=== PATIENT | female | born 1995 | race Caucasian/White ===

== ENCOUNTER 2017-05-07 02:18 | Emergency (ER) | payer OTHER ==
[2017-05-07] MEDS ORDERED: FAMOTIDINE 20 MG/2 ML SDV IVP ONE (02:23)
[2017-05-07] MEDS ORDERED: methylPREDNISolone SOD SUCC 125 MG/2 ML VIAL IVP ONE (02:23)
[2017-05-07] MEDS ORDERED: NS 1,000 ML IV ONE (02:23)
[2017-05-07 02:25] VITALS: TEMP 97.9
--- NOTE | 2017-05-07 02:25 | EDPHY ---
H & P HPI/ROS: HPI CHIEF COMPLAINT: Allergic reaction HISTORY OF PRESENT ILLNESS: This patient is a 21-year-old female otherwise healthy she presents emergency room with allergic reaction. She states she ate tuna and had a soup with some Peas in it. About an hour later she developed itching on her skin. She noticed a rash. She felt as if her throat was closing and called 911. She arrived from her dorm room to the ER. She was given 50 mg IV Benadryl EN route. She states that did help her itching. She has no trouble breathing. No trouble swallowing. No change in phonation. Denies vomiting. Denies abdominal pain. No history of allergic reactions. She does have seasonal allergies and takes Zyrtec. Past Medical History: Seasonal allergies. Past Surgical History: No recent surgery Social History: Denies daily use of drugs alcohol tobacco products. [facility] Family History: [facility] freshman. Noncontributory. ROS REVIEW OF SYSTEMS: A comprehensive 10 point review of systems is otherwise negative aside from elements mentioned in the history of present illness. Exam Constitutional appears well nontoxic triage nursing summary reviewed, vital signs reviewed, awake/alert. Eyes normal conjunctivae and sclera, EOMI, PERRLA. HENT posterior pharynx normal normal inspection, atraumatic, moist mucus membranes, no epistaxis, neck supple/ no meningismus, no raccoon eyes. Respiratory clear to auscultation bilaterally, normal breath sounds, no respiratory distress, no wheezing. Cardiovascular rate normal, regular rhythm, no murmur, no edema, distal pulses normal. Gastrointestinal soft, non-tender, no rebound, no guarding, normal bowel sounds, no distension, no pulsatile mass. Genitourinary no CVA tenderness. Musculoskeletal no midline vertebral tenderness, full range of motion, no calf swelling, no tenderness of extremities, no meningismus, good pulses, neurovascularly intact. Skin urticaria present diffusely. Neurologic awake, alert and oriented x 3, AAOx3, moves all 4 extremities equally, motor intact, sensory intact, CN II-XII intact, normal cerebellar, normal vision, normal speech. Psychiatric normal mood/affect. Heme/Lymph/Immune no lymphadenopathy. Differential Diagnosis: Includes but is not limited to in a particular order acute large reaction, food allergy, anaphylaxis. Medical Decision Making: Plan for this patient IV establishment with IV fluid bolus, Benadryl IV, Pepcid IV, Solu-Medrol IV. Close monitoring. She does not need epinephrine at this time. No stridor or respiratory symptoms on exam posterior pharynx normal. No trouble swallowing or drooling. Re-evaluation: [id number]: Patient resting comfortably no acute distress. No further signs of progression of allergic reaction. Urticaria has resolved with medication. She has been sleeping resting comfortably. Monitored here for multiple hours and no return of allergic reaction. She understands return emergency room she develops any worsening symptoms includes further signs of allergic reaction, vomiting, trouble breathing or rash. Strict return precautions given. She understands. Benadryl and prednisone for the next 3 days. Source: Patient, EMS Constitutional: Initial Vital Signs Temperature (C) 36.6 C 05/07/17 02:23 Heart Rate 84 05/07/17 02:23 Respiratory Rate 16 05/07/17 02:23 Blood Pressure 110/64 05/07/17 02:23 O2 Sat (%) 96 05/07/17 02:23 O2 Delivery Mode Room Air O2 (L/minute) 36.8 Allergies/Adverse Reactions: No Known Allergies Allergy (Unverified 05/07/17 02:23) Home Medications: Medication Instructions Recorded Concerta 05/07/17 diphenhydrAMINE [Benadryl 25 MG 25 mg PO BID #6 tab 05/07/17 (*)] predniSONE 60 mg PO DAILY #9 tab 05/07/17 Medical Decision Making - Data Points Laboratory Results: Laboratory Results 05/07/17 02:18 05/07/17 02:18 05/07/17 05/07/17 02:18 02:18 WBC 12.79 10^3/uL H 10^3/uL (3.80-9.50) RBC 4.86 10^6/uL 10^6/uL (4.18-5.33) Hgb 13.0 g/dL g/dL (12.6-16.3) Hct 39.2 % % (38.0-47.0) MCV 80.7 fL L fL (81.5-99.8) MCH 26.7 pg L pg (27.9-34.1) MCHC 33.2 g/dL g/dL (32.4-36.7) RDW 14.6 % % (11.5-15.2) Plt Count 226 10^3/uL 10^3/uL (150-400) MPV 10.7 fL fL (8.7-11.7) Neut % (Auto) 81.3 % H % (39.3-74.2) Lymph % (Auto) 11.8 % L % (15.0-45.0) Gosper % (Auto) 5.7 % % (4.5-13.0) Eos % (Auto) 0.2 % L % (0.6-7.6) Baso % (Auto) 0.4 % % (0.3-1.7) Nucleat RBC Rel Count 0.0 % % (0.0-0.2) Absolute Neuts (auto) 10.40 10^3/uL H 10^3/uL (1.70-6.50) Absolute Lymphs (auto) 1.51 10^3/uL 10^3/uL (1.00-3.00) Absolute Monos (auto) 0.73 10^3/uL 10^3/uL (0.30-0.80) Absolute Eos (auto) 0.02 10^3/uL L 10^3/uL (0.03-0.40) Absolute Basos (auto) 0.05 10^3/uL 10^3/uL (0.02-0.10) Absolute Nucleated RBC 0.00 10^3/uL 10^3/uL (0-0.01) Immature Gran % 0.6 % % (0.0-1.1) Immature Gran # 0.08 10^3/uL 10^3/uL (0.00-0.10) Sodium 141 mEq/L mEq/L (134-144) Potassium 3.6 mEq/L mEq/L (3.5-5.2) Chloride 104 mEq/L mEq/L (97-110) Carbon Dioxide 23 mEq/l mEq/l (22-31) Anion Gap 14 mEq/L mEq/L (8-16) BUN 11 mg/dL mg/dL (7-23) Creatinine 0.9 mg/dL mg/dL (0.6-1.0) Estimated GFR > 60 Glucose 98 mg/dL mg/dL (70-100) Calcium 9.5 mg/dL mg/dL (8.5-10.4) Medications Given: Discontinued Medications Famotidine (Pepcid) 20 mg IVP EDNOW ONE Stop: 05/07/17 02:24 Last Admin: 05/07/17 02:29 Dose: 20 mg Sodium Chloride (Ns) 1,000 mls @ 0 mls/hr IV EDNOW ONE; Wide Open PRN Reason: Protocol Stop: 05/07/17 02:24 Last Admin: 05/07/17 02:28 Dose: 1,000 mls Methylprednisolone Sodium Succinate (Solu-Medrol) 125 mg IVP EDNOW ONE Stop: 05/07/17 02:24 Last Admin: 05/07/17 02:28 Dose: 125 mg Departure - Departure Disposition: Home, Routine, Self-Care Clinical Impression: Allergic reaction Qualifiers: Encounter type: initial encounter Qualified Code(s): T78.40XA - Allergy, unspecified, initial encounter Condition: Good Instructions: Urticaria (ED), Food Allergy (ED), Anaphylaxis (ED) Additional Instructions: 1. Return immediately to the emergency room if develops worsening symptoms includes further allergic reaction symptoms trouble breathing, rash vomiting or any questions or concerns. 2. Benadryl and prednisone for the next 3 days. Referrals: Patient,NotPresent [Unknown] - As per Instructions Prescriptions: diphenhydrAMINE [Benadryl 25 MG (*)] 25 mg PO BID #6 tab predniSONE 60 mg PO DAILY #9 tab
[2017-05-07 02:57] VITALS: O2SAT 98
[2017-05-07 03:19] LABS: % IMMATURE GRANULYOCYTES 0.6 % (0.0-1.1); ABSOLUTE IMMATURE GRANULOCYTES 0.08 10^3/uL (0.00-0.10); ADD DIFF? NO; ADD MORPH? NO; ADD SCAN? NO; ATYPICAL LYMPHOCYTE FLAG 0 (0-99); FRAGMENT RBC FLAG 0 (0-99); HEMATOCRIT 39.2 % (38.0-47.0); LEFT SHIFT FLG 0 (0-99); LIPEMIA HEMOLYSIS FLAG 80 (0-99); MEAN CELL HEMOGLOBIN 26.7 pg (27.9-34.1); MEAN CELL HEMOGLOBIN CONCENTR. 33.2 g/dL (32.4-36.7); MEAN CELL VOLUME 80.7 fL (81.5-99.8); MEAN PLATELET VOLUME 10.7 fL (8.7-11.7); PLATELET CLUMPS FLAG 20 (0-99); PLATELET COUNT 226 10^3/uL (150-400); RED BLOOD CELL COUNT 4.86 10^6/uL (4.18-5.33); RED CELL DISTRIBUTION WIDTH 14.6 % (11.5-15.2)
[2017-05-07 03:50] LABS: ANION GAP 14 mEq/L (8-16); CALCIUM 9.5 mg/dL (8.5-10.4); CARBON DIOXIDE 23 mEq/l (22-31); CHLORIDE 104 mEq/L (97-110); CREATININE 0.9 mg/dL (0.6-1.0); GLOMERULAR FILTRATION RATE > 60; GLUCOSE 98 mg/dL (70-100); POTASSIUM 3.6 mEq/L (3.5-5.2); SODIUM 141 mEq/L (134-144)
[2017-05-07 04:35] VITALS: BP 112/65; PULSE 90; RESP 14
== END 2017-05-07 05:08 | disposition home or self-care (01) ==
DX: T78.1XXA Other adverse food reactions, not elsewhere classified, initial encounter (principal); E86.9 Volume depletion, unspecified
CPT/HCPCS: 96374

== ENCOUNTER 2017-05-12 16:46 | Emergency (ER) | payer OTHER ==
[2017-05-12 16:58] VITALS: TEMP 97.9
--- NOTE | 2017-05-12 17:28 | EDPHY ---
H & P Time Seen by Provider: 05/12/17 16:51 HPI/ROS: CHIEF COMPLAINT: Head injury HISTORY OF PRESENT ILLNESS: Patient is a 21-year-old female who presents to the emergency department with reported head injury. She is not sure exactly what happened. She was lying on her bed improve her head back. She struck her head on a hard window seal. Does not know she lost consciousness. She has felt slightly confused for the past couple of days. She has a mild headache. No nausea or vomiting. No fevers or chills. No focal deficits. No visual change. No neck pain. Patient denies suicidal ideation REVIEW OF SYSTEMS: My complete review of systems is negative except as mentioned in the HPI. Past Medical/Surgical History: Includes depression, attention deficit hyperactivity disorder Smoking Status: Never smoked Physical Exam: Vitals noted GENERAL: Well-appearing, in no acute distress, alert. HEAD: No evidence of trauma. EYES: PERRLA, EOMI, normal to inspection. ENT: Normal external examination. NECK: The C-spine is nontender. NEXUS criteria is negative (no midline tenderness, no distracting injury, no altered mental status, no recent alcohol use, no focal neurologic deficit). RESPIRATORY: Clear to auscultation bilaterally, no rales, rhonchi or wheezing. There is no crepitus or palpable rib fractures. CVS: Regular rate and rhythm, no rubs, murmurs, or gallops. ABDOMEN: Soft, nontender, nondistended, normal bowel sounds, no bruising or abrasions. BACK: Normal to inspection, no spinal tenderness, no spinal step off, no notable bruising or abrasions. SKIN: Normal color, warm, dry. No pallor or diaphoresis. EXTREMITIES: Atraumatic, neurovascularly intact distally in all extremities, pelvis is stable , hips with full range of motion, moves all extremities freely. NEURO/PSYCH: Higher functions: Alert and Oriented x3. Normal speech and cognition. Normal mood and affect. Cranial nerves: Normal as tested. Cerebellar: Normal as tested. Good finger to nose, good [id number], normal gait. Peripheral exam: Normal motor exam. Normal sensation. Constitutional: Initial Vital Signs Temperature (C) 36.6 C 05/12/17 16:55 Heart Rate 91 05/12/17 16:55 Respiratory Rate 16 05/12/17 16:55 Blood Pressure 128/81 H 05/12/17 16:55 O2 Sat (%) 90 L 05/12/17 16:55 O2 Delivery Mode Room Air Allergies/Adverse Reactions: No Known Allergies Allergy (Unverified 05/07/17 02:23) Home Medications: Medication Instructions Recorded Concerta 05/07/17 diphenhydrAMINE [Benadryl 25 MG 25 mg PO BID #6 tab 05/07/17 (*)] predniSONE 60 mg PO DAILY #9 tab 05/07/17 Medical Decision Making - Diagnostics Imaging Results: Imaging Impressions Head CT 05/12/17 17:31 Impression: There is no acute intracranial abnormality identified on this unenhanced CT evaluation. If there is further clinical concern regarding the patient's symptoms, MR imaging is suggested, if not otherwise contraindicated. Findings were discussed with EVANGELINA LEON MD at 18:42, on 05/12/2017. ED Course/Re-evaluation: In the emergency department I discussed possible etiologies with the patient. A head CT without contrast was ordered. The patient consented. Patient denies being . She states her last menstrual period was 2 days ago. It was 1 month previous to that. Head CT: Please refer the dictated report. No acute disease noted. I discussed the results with the patient. She had no neurologic deficits on recheck. I answered all her questions. I discussed the diagnosis of concussion and the need for close follow-up. She is given the contact information for Dr. Cho, a concussion specialist. She ambulated well out of the emergency department. She is given warnings prior to leaving. Differential Diagnosis: My differential includes but is not limited to concussion, head injury, subarachnoid hemorrhage, subdural hematoma, epidural hematoma, depression Departure - Departure Disposition: Home, Routine, Self-Care Clinical Impression: Head injury Qualifiers: Encounter type: initial encounter Qualified Code(s): S09.90XA - Unspecified injury of head, initial encounter Condition: Good Instructions: Head Injury (ED) Additional Instructions: Your head CT was normal. You have been given follow-up with Dr. Cho who is a concussion specialist. Referrals: Judi Cho MD [Medical Doctor] - 2-3 days, if not improved
[2017-05-12] MEDS ORDERED: chlordiazePOXIDE 25 MG CAP ONE (17:46)
[2017-05-12] MEDS ORDERED: LORazepam 2 MG/ML INJ ONE (17:47)
[2017-05-12 19:12] VITALS: BP 127/85; PULSE 71; RESP 14; O2SAT 97
== END 2017-05-12 19:13 | disposition home or self-care (01) ==
LOC: EDUNIT#
DX: S09.90XA Unspecified injury of head, initial encounter (principal); W22.8XXA Striking against or struck by other objects, initial encounter
CPT/HCPCS: J2060